=== PATIENT | female | born 1980 | race American Indian/Alaskan Native ===

== ENCOUNTER 2016-05-29 01:09 | Inpatient (IN) | payer MEDICAID ==
[2016-05-29 03:00] LABS: Basophils % (Auto) 0.3 % (0.0-1.8); Eosinophils % (Auto) 3.6 % (0.0-4.3); Mean Corpuscular HGB Conc 28 % (30-34); Platelet Count 214 K/mm3 (140-440); Red Blood Count 3.32 M/mm3 (3.65-5.03); Red Cell Distribution Width 18.8 % (13.2-15.2); White Blood Count 5.6 K/mm3 (4.5-11.0)
[2016-05-29 03:01] LABS: Hematocrit 20.1 % (30.3-42.9); Mean Corpuscular Hemoglobin 17 pg (28-32); Mean Corpuscular Volume 60 fl (79-97)
[2016-05-29 03:02] LABS: Hemoglobin 5.7 gm/dl (10.1-14.3)
[2016-05-29 03:13] LABS: Anion Gap 18 mmol/L; BUN/Creatinine Ratio 11.66; Blood Urea Nitrogen 7 mg/dL (7-17); Calcium 8.6 mg/dL (8.4-10.2); Carbon Dioxide 25 mmol/L (22-30); Chloride 100.5 mmol/L (98-107); Glucose 98 mg/dL (65-100); Potassium 4.3 mmol/L (3.6-5.0); Sodium 139 mmol/L (137-145)
[2016-05-29] MEDS ORDERED: NACL 0.9% 500 ML 500 ML IV ONE ×2 (03:40→06:28)
--- NOTE | 2016-05-29 03:46 | Emergency Department Report ---
HPI - General Chief Complaint: Vaginal Bleeding Time Seen by Provider: 05/29/16 03:32 - HPI HPI: Room 9 The patient is a 35-year-old female presenting with a chief complaint of dysuria and dyspnea on exertion. Patient states she has a history of anemia has discussed with her HEAD UP OPERATOR (Dr. Danielle at [facility]) the option of hysterectomy. The patient states no plans of the made at this time. The patient states last week her cycle last 7 days she went approximate 6 pads per day. The patient states she has not had vaginal bleeding and 05/23/2016. The patient states for 1 week she has had dyspnea on exertion. The patient states for 1 day she has had symptoms that made her feel she had a "bladder infection. " The patient states for 24 hours she has had urinary frequency, dysuria and hematuria. Patient denies any history of fever Location: [see above] Duration: [see above] Quality: Dyspnea, discomfort Severity: Moderate Modifying factors: [see above] Context: [see above] Mode of transportation: Unknown ED Past Medical Hx - Past Medical History Previous Medical History?: Yes Hx Diabetes: Yes Additional medical history: anemia - Surgical History Past Surgical History?: Yes Additional Surgical History: gastric bypass 2008, bilateral tubal ligation - Family History Family history: no significant - Social History Smoking Status: Never Smoker - Medications Home Medications: Home Medications Medication Instructions Recorded Confirmed Last Taken Type Ferrous Sulfate [Feosol 325 MG tab] 325 mg PO BID #60 tablet 11/01/14 05/29/16 05/25/16 Rx ED Review of Systems ROS: Stated complaint: PAINFUL FREQUENT URINATION Other details as noted in HPI Comment: All other systems reviewed and negative Constitutional: weakness ENT: denies: ear pain, throat pain Respiratory: SOB with exertion Cardiovascular: denies: chest pain, palpitations Endocrine: no symptoms reported Gastrointestinal: denies: abdominal pain, nausea, diarrhea Genitourinary: dysuria, frequency, hematuria Musculoskeletal: denies: back pain, joint swelling, arthralgia Skin: denies: rash, lesions Neurological: denies: headache, weakness, paresthesias Psychiatric: denies: anxiety, depression Hematological/Lymphatic: denies: easy bleeding, easy bruising Physical Exam - Physical Exam Vital Signs: Vital Signs 05/29/16 01:37 Temperature 98.4 F Pulse Rate 83 Respiratory 18 Rate Blood Pressure 110/61 [Left] O2 Sat by Pulse 100 Oximetry Physical Exam: GENERAL: The patient is well-developed well-nourished female lying on stretcher not appear to be in acute distress. [] HEENT: Normocephalic. Atraumatic. Extraocular motions are intact. Patient has moist mucous membranes. NECK: Supple. Trachea midline. CHEST/LUNGS: Clear to auscultation. There is no respiratory distress noted. HEART/CARDIOVASCULAR: Regular. There is no tachycardia. There is no gallop rub or murmur. ABDOMEN: Abdomen is soft, nontender. Patient has normal bowel sounds. There is no abdominal distention. SKIN: There is no rash. There is no edema. There is no diaphoresis. NEURO: The patient is awake, alert, and oriented. The patient is cooperative. The patient has normal speech MUSCULOSKELETAL: There is no evidence of acute injury. ED Course Vital Signs 05/29/16 01:37 Temperature 98.4 F Pulse Rate 83 Respiratory 18 Rate Blood Pressure 110/61 [Left] O2 Sat by Pulse 100 Oximetry ED Medical Decision Making - Lab Data Result diagrams: 05/29/16 02:42 05/29/16 02:42 Laboratory Tests 05/29/16 05/29/16 02:42 02:42 WBC 5.6 RBC 3.32 L Hgb 5.7 L* Hct 20.1 L MCV 60 L MCH 17 L MCHC 28 L RDW 18.8 H Plt Count 214 Lymph % (Auto) 22.3 [place] % (Auto) 8.9 H Eos % (Auto) 3.6 Baso % (Auto) 0.3 Lymph # 1.3 [place] # 0.5 Eos # 0.2 Baso # 0.0 Seg Neutrophils % 64.9 Seg Neutrophils # 3.6 Sodium 139 Potassium 4.3 Chloride 100.5 Carbon Dioxide 25 Anion Gap 18 BUN 7 Creatinine 0.6 L Estimated GFR > 60 BUN/Creatinine Ratio 11.66 Glucose 98 Calcium 8.6 UA pending - Differential Diagnosis symptomatic anemia, uterine fibroids, menorrhagia Critical care attestation.: If time is entered above; I have spent that time in minutes in the direct care of this critically ill patient, excluding procedure time. ED Disposition Clinical Impression: Symptomatic anemia, Dysuria Disposition: OP ADMITTED IP TO THIS HOSP Is pt being admited?: Yes Does the pt Need Aspirin: No Condition: Fair Referrals: SHIV ASHER JR, MD [Primary Care Provider] - 3-5 Days Time of Disposition: 03:47 (HEAD UP OPERATOR paged)
[2016-05-29 04:44] LABS: Bacteria,Urine 1+ /HPF (Negative); Bilirubin,Urine NEG (Negative); Blood,Urine MOD (Negative); Ketones,Urine NEG (Negative); Leukocyte Esterase,Urine LG (Negative); Mucus,Urine FEW /HPF; Nitrite,Urine NEG (Negative); Urobilinogen,Urine < 2.0 mg/dL (<2.0)
[2016-05-29 04:45] LABS: WBC,Urine > 182.0 /HPF (0.0-6.0)
[2016-05-29] MEDS ORDERED: ALUM-MAG HYDROX-SIMETH 200-200-20MG/5ML PO PRN (06:28)
[2016-05-29] MEDS ORDERED: TYLENOL PO ONE (06:28)
[2016-05-29] MEDS ORDERED: MILK OF MAGNESIA PO PRN (06:28)
[2016-05-29] MEDS ORDERED: COLACE PO PRN (06:28)
[2016-05-29] MEDS ORDERED: BENADRYL IV ONE (06:28)
[2016-05-29] MEDS ORDERED: SENOKOT S PO PRN (06:28)
[2016-05-29] MEDS ORDERED: TYLENOL PO PRN (06:28)
--- NOTE | 2016-05-29 06:39 | Short Stay Summary ---
<NALINI LOGAN Polo - Last Filed: 05/29/16 07:27> Short Stay Documentation Date of service: 05/29/16 Narrative H&P: Pt is a 35yo BF LMP 05/16/16 presents to [facility] ER complaining of feeling tired with dyspnea on exertion. She has a known history of fibroids, and was seeing Dr Danielle at [facility] where she is contemplating a hysterectomy. She states her cycles last for 7 days, and she uses approximately 6 pads per day. She has not had any vaginal bleeding since 05/23/2016, but for 1 week she has had dyspnea on exertion. She states for 1 day she has had symptoms that made her feel she had a "bladder infection" having urinary frequency, dysuria and hematuria. Patient denies any history of fever. She was admitted 10/31/14 for a similar episode. Today her H/H is 5.7/20.1 and thus will be admitted for a blood transfusion due to symptomatic anemia. - History Principal diagnosis: Symptomatic anemia H&P: obtained from office Past Medical History: other (Fibroids) Past Surgical History: Other (Gastric bypass; BTL) Social history: no significant social history, - Allergies and Medications Current Medications: Allergies No Known Allergies Allergy (Verified 10/31/14 22:30) Home Medications Medication Instructions Recorded Confirmed Last Taken Type Ferrous Sulfate [Feosol 325 MG tab] 325 mg PO BID #60 tablet 11/01/14 05/29/16 05/25/16 Rx Active Medications Acetaminophen (Tylenol) 650 mg PO Q4H PRN PRN Reason: Pain MILD(1-3)/Fever >100.5/JUSTIN Acetaminophen (Tylenol) 650 mg PO ONCE ONE Stop: 05/29/16 06:29 Al Hydrox/Mg Hydrox/Simethicone (Alum-Mag Hydrox-Simeth [phone]/5ml) 30 ml PO Q6H PRN PRN Reason: Indigestion Diphenhydramine HCl (Benadryl) 25 mg IV ONCE ONE Stop: 05/29/16 06:29 Docusate Sodium (Colace) 100 mg PO Q12H PRN PRN Reason: Constipation Lactated Ringer's (Lactated Ringers) 1,000 mls @ 125 mls/hr IV DIRECT TR Sodium Chloride (Nacl 0.9% 500 Ml) 500 mls @ 0 mls/hr IV ONCE ONE PRN Reason: As Directed Stop: 05/29/16 06:29 Magnesium Hydroxide (Milk Of Magnesia) 30 ml PO QHS PRN PRN Reason: Laxative Effect Multivitamins/Iron/Calcium ( Vitamin) 1 each PO QDAY TR Senna/Docusate Sodium (Senokot S) 2 tab PO Q12H PRN PRN Reason: Laxative Effect - Physical exam General appearance: mild distress Integumentary: no rash HEENT: Atraumatic Lungs: Clear to auscultation Breasts: deferred Heart: Regular rate Gastrointestinal: normal Female Genitourinary: deferred Rectal Exam: deferred Extremities: No edema Neurological: Normal speech - Disposition Condition at discharge: Good Disposition: DISCHARGED TO HOME OR SELFCARE Short Stay Discharge Plan Follow up with: NALINI LOGAN MD [Staff Physician] - 7 Days <LISA WOODARD - Last Filed: 05/29/16 19:20> Short Stay Documentation - Allergies and Medications Current Medications: Allergies No Known Allergies Allergy (Verified 10/31/14 22:30) Home Medications Medication Instructions Recorded Confirmed Last Taken Type Ferrous Sulfate [Feosol 325 MG tab] 325 mg PO BID #60 tablet 11/01/14 05/29/16 05/25/16 Rx Active Medications Acetaminophen (Tylenol) 650 mg PO Q4H PRN PRN Reason: Pain MILD(1-3)/Fever >100.5/JUSTIN Al Hydrox/Mg Hydrox/Simethicone (Alum-Mag Hydrox-Simeth [id number]/5ml) 30 ml PO Q6H PRN PRN Reason: Indigestion Docusate Sodium (Colace) 100 mg PO Q12H PRN PRN Reason: Constipation Lactated Ringer's (Lactated Ringers) 1,000 mls @ 125 mls/hr IV DIRECT TR Ibuprofen (Motrin) 600 mg PO Q6H PRN PRN Reason: Pain, Mild (1-3) Magnesium Hydroxide (Milk Of Magnesia) 30 ml PO QHS PRN PRN Reason: Laxative Effect Multivitamins/Iron/Calcium ( Vitamin) 1 each PO QDAY TR Senna/Docusate Sodium (Senokot S) 2 tab PO Q12H PRN PRN Reason: Laxative Effect - Hospital course Hospital course: Was admitted to the floor in stable condition. She received 3 units of packed red blood cells. Her bleeding nausea resolved She had a transvaginal ultrasound which showed findings noted below: Vaginal ultrasound shows a ~ 10 cm uterus, heterogeneous, possibly partially calcified or upper uterine fibroid measuring ~ 5 cm. this somewhat displaces the endometrial stripe anteriorly. The thickness of 3 mm is seen on endovaginal image. Minimal pelvic free fluid is seen, unremarkable right ovary measuring 3 cm, left ovary measures 5 cm with an approximately 1 cm follicular cyst. Discharge in stable condition, advised to follow up in the clinic SON - Discharge Diagnoses (1) Abnormal uterine bleeding (AUB) Status: Acute (2) Fibroids, submucosal Status: Acute (3) Symptomatic anemia Status: Acute Short Stay Discharge Plan Activity: advance as tolerated Weight Bearing Status: Weight Bear as Tolerated Diet: regular
--- NOTE | 2016-05-29 06:55 | Admit Criteria Form ---
Admission Criteria Documentation: ANEMIA, IRON DEFICIENCY OR UNSPECIFIED Clinical Indications for Inpatient Care (Place 'X' for any and all applicable criteria): Admission is indicated for ANY ONE of the following(1)(2)(3)(4)(5)(6)(7): [X] I. Inpatient admission required rather than observation care (Also use Anemia, Iron Deficiency or Unspecified: Observation Care guideline as appropriate) because of ANY ONE of the following: [] a) Hemodynamic instability that is severe or persistent [] b) Active bleeding that cannot be rapidly controlled [X] c) CVS symptoms (i.e., dyspnea, chest pain, heart failure) that are severe or persistent [] d) Neurologic symptoms (i.e., cognitive impairment, recurrent syncope or near syncope) that are severe or persistent [] e) Cardiac arrhythmias of immediate concern [] f) Acute peripheral ischemia (e.g., pulseless, cool, mottled, or cyanotic extremity) [] g) High-risk low platelet count [] h) Acute renal failure [X] i) Ongoing transfusion for blood loss (greater than 2 units) [] j) IV fluid to replace significant ongoing (eg, >24 hours) losses (> 3 L/m2 per day) [] k) Pulmonary artery catheter monitoring [] l) Supplemental oxygen or respiratory treatments for over 24 hours that are performable only in acute inpatient setting [] m) Immediate inpatient surgery [] n) Other condition, treatment or monitoring requiring inpatient admission [] II Active massive hemorrhage [] III. Active hemolysis with rapidly progressive anemia [A](6) Extended stay beyond goal length of stay may be needed for (17)(18) []a) Diagnosed cause of anemia requiring longer hospitalization (eg, active GI bleeding, immune hemolysis requiring electrophoresis, complications of malignancy requiring acute care []b) Continued emergent anemia indicators (23) []c) Transfusion reactions []d) Associated leukopenia or thrombocytopenia needing inpatient care []e) Active comorbidities (eg, renal failure, heart failure) The original [facility] Care Guidelines content created by [facility] Guidelines has been revised. The portions of the content which have been revised are identified through the use of italic text or in bold. [facility] Guidelines has neither reviewed nor approved the modified material. All other unmodified content is copyright [facility] Guidelines. Please see references footnoted in the original [facility] edition 2016 Admission Criteria Met: Yes
[2016-05-29] MEDS ORDERED: LACTATED RINGERS 1,000 ML IV SCH (07:00)
[2016-05-29] MEDS ORDERED: PRENATAL VITAMIN PO SCH (10:00)
--- NOTE | 2016-05-29 14:38 | Ultrasound Report ---
ULTRASOUND PELVIS COMPLETE - TRANSABDOMINAL AND TRANSVAGINAL: INDICATION: Anemia. COMPARISON: None similar at this institution. FINDINGS: Transabdominal and transvaginal pelvic sonography performed in this patient with LMP of 05/23/2016 demonstrates an anteverted uterus measuring 9.5 x 6.2 x 6.5 cm. Heterogeneous, possibly partly calcified upper uterine fibroid posteriorly measuring 4.8 x 4 x 3.7 cm somewhat displaces the upper endometrial stripe anteriorly. Minimal endometrial canal fluid seen just below it. Endometrial thickness of 3 mm as on endovaginal image 4. Minimal pelvic free fluid. Unremarkable right ovary measuring 2.8 x 1.4 x 1.8 cm. Left ovary measures 4.5 x 1.4 x 3 cm with an approximately 1 cm follicular cysts. CONCLUSION: Approximately 4.8 cm posterior upper uterine fibroid, displacing the endometrium, as described. Otherwise unremarkable exam. Please correlate. Thank you for the opportunity to participate in this patient's care.
[2016-05-29] MEDS ORDERED: MOTRIN PO PRN (18:42)
[2016-05-29] MEDS ORDERED: MACROBID PO ONE (18:46)
[2016-05-29 21:06] VITALS: BP 119/69
[2016-05-29 21:31] LABS: Hemoglobin 8.2 gm/dl (10.1-14.3)
--- NOTE | 2016-05-31 18:51 | Admit Criteria Form ---
Admission Criteria Documentation: ANEMIA, IRON DEFICIENCY OR UNSPECIFIED Clinical Indications for Inpatient Care (Place 'X' for any and all applicable criteria): Admission is indicated for ANY ONE of the following(1)(2)(3)(4)(5)(6)(7): [X] I. Inpatient admission required rather than observation care (Also use Anemia, Iron Deficiency or Unspecified: Observation Care guideline as appropriate) because of ANY ONE of the following: [] a) Hemodynamic instability that is severe or persistent [] b) Active bleeding that cannot be rapidly controlled [X] c) CVS symptoms (i.e., dyspnea, chest pain, heart failure) that are severe or persistent [] d) Neurologic symptoms (i.e., cognitive impairment, recurrent syncope or near syncope) that are severe or persistent [] e) Cardiac arrhythmias of immediate concern [] f) Acute peripheral ischemia (e.g., pulseless, cool, mottled, or cyanotic extremity) [] g) High-risk low platelet count [] h) Acute renal failure [] i) Ongoing transfusion for blood loss (greater than 2 units) [] j) IV fluid to replace significant ongoing (eg, >24 hours) losses (> 3 L/m2 per day) [] k) Pulmonary artery catheter monitoring [] l) Supplemental oxygen or respiratory treatments for over 24 hours that are performable only in acute inpatient setting [] m) Immediate inpatient surgery [] n) Other condition, treatment or monitoring requiring inpatient admission [] II Active massive hemorrhage [] III. Active hemolysis with rapidly progressive anemia [A](6) Extended stay beyond goal length of stay may be needed for (17)(18) []a) Diagnosed cause of anemia requiring longer hospitalization (eg, active GI bleeding, immune hemolysis requiring electrophoresis, complications of malignancy requiring acute care []b) Continued emergent anemia indicators (23) []c) Transfusion reactions []d) Associated leukopenia or thrombocytopenia needing inpatient care []e) Active comorbidities (eg, renal failure, heart failure) The original [facility] Care Guidelines content created by [facility] Care Guidelines has been revised. The portions of the content which have been revised are identified through the use of italic text or in bold. [facility] Guidelines has neither reviewed nor approved the modified material. All other unmodified content is copyright [facility] Care Guidelines. Please see references footnoted in the original [facility] edition 2016 Admission Criteria Met: Yes
== END 2016-05-29 23:00 | disposition home or self-care (01) | DRG 812 ==
LOC: ED 01:09 → OB 06:28
PROVIDERS: ADMIT Obstetrics & Gynecology; ATTEND Obstetrics & Gynecology
PROC: 30233N1 Transfusion of Nonautologous Red Blood Cells into Peripheral Vein, Percutaneous Approach (ICD-10-PCS; principal; 2016-05-29)
DX: D64.9 Anemia, unspecified (principal); N93.9 Abnormal uterine and vaginal bleeding, unspecified; R30.0 Dysuria; E11.9 Type 2 diabetes mellitus without complications; Z98.84 Bariatric surgery status; Z98.51 Tubal ligation status; Z79.84 Long term (current) use of oral hypoglycemic drugs; D25.0 Submucous leiomyoma of uterus
CPT/HCPCS: 36415; 76830; 76856; 80048; 81001; 81025; 85014; 85018; 85025; 86850; 86900; 86901; 86920; 99284; J1200; J7040; P9016